=== PATIENT | female | born 1970 | race Caucasian/White ===

== ENCOUNTER 2024-05-05 20:59 | Emergency (ER) | payer BC, SELFPAY ==
[2024-05-05 21:01] VITALS: BP 173/106
--- NOTE | 2024-05-06 01:31 | ED.GENMED ---
History of Present Illness
General
Chief Complaint: DVT/Possible Blood Clot
Time Seen by Provider: 05/06/24 00:20
History of Present Illness
History of Present Illness:
54-year-old female without significant past medical history presenting to the emergency department for right-sided leg pain and swelling. Patient reports that symptoms started about 5 to 6 days ago. Denies inciting injury or trauma. Denies
redness or warmth. Denies history of blood clots. Denies numbness or tingling to the leg. Denies chest pain or difficulty breathing. Pain is particularly at the ankle region. Denies fever. Denies additional acute medical complaints.
Phy Exam
Physical Exam
Physical Exam:
General: Well-appearing, no clinical signs of dehydration, nontoxic and in no acute distress
HEENT: protecting airway
Neck: appears supple
CV: Normal heart rate
Resp: No accessory muscle use, no increased work of breathing
Abd: No distention
Extremities: No deformities, minimal swelling to the ankle with generalized tenderness proximal to the ankle. Distal sensation and pulses intact. Range of motion intact. No erythema or warmth.
Neuro: alert, no focal neurologic deficit
: deferred
Rectal: deferred
Psych: Normal affect
Skin: Intact
Course
Orders/Labs/Results
Orders:
Orders
05/05/24 21:05
Venous Doppler Lwr Ext Rt [[facility] Venous LOWER Ext RT] Urgent
Comment:
Reason For Exam: pain
05/06/24 00:46
Ankle, Right 2 view CR [CR Ankle - Right 2 Views] Urgent
Comment:
Reason For Exam: generalized pain
Vital Signs
Initial and Last Documented VS:
Initial Vital Signs
Temp Pulse Resp BP Pulse Ox
98.6 F 119 18 173/106 96
05/05/24 21:01 05/05/24 21:01 05/05/24 21:01 05/05/24 21:01 05/05/24 21:01
Last Documented Vital Signs
Temp Pulse Resp BP Pulse Ox
98.6 F 119 18 173/106 96
05/05/24 21:01 05/05/24 21:01 05/05/24 21:01 05/05/24 21:01 05/05/24 21:01
MDM/Problems Addressed
MDM/Problems Addressed:
54-year-old female presenting to the emergency department for right lower extremity pain and swelling. Vital signs on arrival are significant for high blood pressure and tachycardia.
On exam patient is complete, no acute distress or discomfort. Overall benign examination of the right lower extremity. No significant erythema or warmth, with range of motion intact. Without concern for infectious pathology mellitus. No
neurovascular compromise. No deformity or suspected malalignment. No focal calf tenderness. Mild tenderness to the ankle joint approximately, suspected musculoskeletal component. Ultrasound obtained prior to my assessment, negative for DVT.
Will add on x-ray to ensure no small fracture could be contributing to symptoms.
01:40 - -ray without fracture or malalignment. Continue to suspect musculoskeletal quality symptoms. She notes that she has been taking ibuprofen which helps the pain. Advised continued outpatient supportive therapy. Return precautions discussed
and patient verbalized understanding
*Critical Care Note
Total Time (30-74mins, 75-104mins- exclusive of procedures): Not Applicable
ED Attending Note
-
Portions of this chart may have been created with voice recognition software.� Occasional wrong word or��sound alike� substitutions may have occurred due to the inherent limitations of voice recognition software.
Discharge Plan
Interventions
Interventions:
*Risk Screen - Suicide Last Done: 05/05/24 21:01
*General Assessment Last Done: 05/05/24 21:01
*Neglect/Abuse Screening Last Done: 05/05/24 21:01
ED- Cardiac Assessment Last Done: 05/06/24 00:46
ED- Pulmonary Assessment Last Done: 05/06/24 00:46
Discharge Date and Time
Print Language: MACEDONIAN
[2024-05-06 01:49] VITALS: BP 159/84
== END 2024-05-06 01:56 | disposition home or self-care (01) ==
LOC: EMR 20:59
PROVIDERS: EMERGENCY PHYSICIAN Student in an Organized Health Care Education/Training Program; FAMILY PHYSICIAN Internal Medicine
DX: M79.604 Pain in right leg (principal); R22.41 Localized swelling, mass and lump, right lower limb; R03.0 Elevated blood-pressure reading, without diagnosis of hypertension
CPT/HCPCS: 99284; 73600; 93971